=== PATIENT | female | born 1970 | race Two or more races ===

== ENCOUNTER 2018-03-17 05:47 | Day surgery (SDC) | payer BC, OTHER ==
[~2018-03-17] VITALS: Ht 154.9 cm; Wt 54.9 kg
[2018-03-17] VITALS (17 sets, daily range): BP systolic 93–121; BP diastolic 38–61; PULSE 60–87; RESP 15–25; Ht 154.9 cm; Wt 54.9 kg
--- NOTE | 2018-03-17 06:18 | HPN ---
Date/Time of Note Date/Time of Note DATE: 03/17/18 TIME: 06:18 Interval H&P Admission Note Pt. seen H&P reviewed: No system changes MUKUL RICCI MD Mar 17, 2018 06:18
[2018-03-17] MEDS ORDERED: PANT40TA3 PO (06:59)
[2018-03-17] MEDS ORDERED: EPHEDrine SULFATE 50 MG/5 ML SYG ONE (07:00)
[2018-03-17] MEDS ORDERED: CEFAZOLIN 1 GM INJ ONE (07:00)
[2018-03-17] MEDS ORDERED: BUPIVACAINE 0.5%/EPI (SDV) 30 ML INJ ONE (07:08)
--- NOTE | 2018-03-17 07:14 | PREAC ---
Date/Time of Note Date/Time of Note DATE: 03/17/18 TIME: 07:14 Anesthesia Eval and Record Evaluation Time Pre-Procedure Interview DATE: 03/17/18 TIME: 07:14 Age 47 Sex female NPO: 8 hrs Preoperative diagnosis bladder stone Planned procedure lap mounika Past Medical History Past Medical History: None Surgery & Anesthesia Issues No known issue Meds Anticoagulation: No Beta Nate within 24 hr: No Reason Beta Nate not given: Pt. not on B-Nate Reported Medications Pantoprazole* (Protonix*) 40 Mg Tablet.dr, 40 MG PO DAILY, TAB 03/17/18 Meds reviewed: Yes Allergies Coded Allergies: pineapple (Verified Allergy, Intermediate, RASHES, 03/17/18) Allergies Reviewed: Yes Labs/Studies Labs Reviewed: Reviewed by anesthesiologist test: Negative Studies: ECG (sr), CXR (nl) Pre-procedure Exam Last vitals Vital Signs Date Temp Pulse Resp B/P (MAP) Pulse Ox O2 O2 Flow FiO2 Time Delivery Rate 03/17/18 98.3 87 18 119/61 99 Room Air 06:57 (80) Airway: Adequate mouth opening Mallampati: Mallampati I Teeth: Normal Lung: Normal Heart: Normal ASA Physical Status ASA physical status: 1 Emergency: None Planned Anesthetic General/MAC: ETT Nerve block: TAP (bilateral) Planned Pain Management Single shot nerve block Pre-operative Attestations Prior to commencing anesthesia and surgery, the patient was re-evaluated, there was verification of: *The patient's identity *The results of appropriate recent lab work and preoperative vital signs *The above evaluation not changing prior to induction *Anesthetic plan, risk benefits, alternative and complications discussed with patient/family; questions answered; patient/family understands, accepts and wishes to proceed. HUMBERTO BAHENA MD Mar 17, 2018 07:14
[2018-03-17] MEDS ORDERED: MIDAZOLAM 1 MG/ML 2 ML INJ ONE (07:26)
[2018-03-17] MEDS ORDERED: METOCLOPRAMIDE 10 MG INJ ONE (07:26)
[2018-03-17] MEDS ORDERED: KETOROLAC 30 MG INJ ONE (07:26)
[2018-03-17] MEDS ORDERED: NEOSTIGMINE 3 MG/3 ML SYRINGE ONE (07:26)
[2018-03-17] MEDS ORDERED: ROCURONIUM 50 MG INJ ONE (07:26)
[2018-03-17] MEDS ORDERED: ONDANSETRON 4 MG INJ ONE (07:26)
[2018-03-17] MEDS ORDERED: PROPOFOL 20 ML ONE (07:26)
[2018-03-17] MEDS ORDERED: ROPIVACAINE 0.5 % 30 ML VIAL ONE (07:26)
[2018-03-17] MEDS ORDERED: GLYCOPYRROLATE 0.4 MG INJ ONE (07:26)
[2018-03-17] MEDS ORDERED: DIPHENHYDRAMINE 50 MG INJ IV PRN (07:30)
[2018-03-17] MEDS ORDERED: OXYCODONE/ACETAMINOPHEN (5/325) TAB PO PRN ×4 (07:30→08:30)
[2018-03-17] MEDS ORDERED: KETOROLAC 30 MG INJ IV PRN (07:30)
[2018-03-17] MEDS ORDERED: ONDANSETRON 4 MG INJ IV PRN ×2 (07:30→08:30)
[2018-03-17] MEDS ORDERED: MEPERIDINE 25 MG INJ IV PRN (07:30)
[2018-03-17] MEDS ORDERED: HYDROmorphONE 1 MG/5 ML IV SYRINGE IV PRN ×3 (07:30)
[2018-03-17] MEDS ORDERED: FENTAnyl 50 MCG/ML VIAL ONE (07:45)
[2018-03-17] MEDS ORDERED: morphine 2 MG INJ IV PRN (08:30)
--- NOTE | 2018-03-17 08:33 | OPR ---
Date/Time of Note Date/Time of Note DATE: 03/17/18 TIME: 08:29 Operative Report Procedure Date: Mar 17, 2018 Preoperative Diagnosis Gallstones without obstruction Postoperative Diagnosis Gallstones without obstruction Operation/Procedure Performed Laparoscopic cholecystectomy Surgeon Mukul Ricci MD Slack Cooper None Anesthesia Type: general Anesthesiologist: HUMBERTO BAHENA MD Estimated Blood Loss: 0 - 10 ml's Transfusion none Specimen Gallbladder Grafts/Implants none Tubes/Drains None Complications none Pt Condition Post Procedure: stable Disposition: PACU Indications Symptomatic cholelithiasis Procedure Description After satisfactory general endotracheal anesthesia was achieved, the abdomen was prepped and draped in the usual fashion. The abdomen was insufflated with carbon dioxide through an umbilical Veress needle to 15 mmHg pressure. The Veress needle was removed and the umbilical incision extended to 5 mm through which a 5 mm trocar was placed. A 5 mm 0 degree lens was placed. Laparoscopy was entirely unremarkable. Under direct visualization, an 11 mm epigastric trocar was placed as well as 2 more 5 mm right lateral abdominal trochars. The dome of the gallbladder was then grasped and retracted superiorly. Cerrato's pouch was grasped and retracted inferolaterally. The hepatoduodenal ligament was carefully dissected between the gallbladder and the well-visualized aleksandra hepatis. In this case the cystic artery was coursing anteriorly on the gal lbladder. This was dissected then triply hemoclipped and divided. The cystic duct was dissected between the gallbladder and the well-visualized common bile duct. It was triply hemoclipped and divided high at the junction of the gallbladder and the cystic duct. The gallbladder was then dissected from below using electrocautery dissection and placed fully intact into an Endo Catch removed by the epigastric route. Hemostasis of the liver bed was total and irrigant returned clear. The abdomen was then desufflated and all trochars were removed. The fascia of the epigastrium was closed with a single suture of 0 Vicryl. The skin punctures were then closed with yasemin. Sponge and needle counts were reported as correct x2. MUKUL RICCI MD Mar 17, 2018 08:33
--- NOTE | 2018-03-17 08:55 | PAC ---
Date/Time of Note Date/Time of Note DATE: 03/17/18 TIME: 08:55 Post-Anesthesia Notes Post-Anesthesia Note Last documented vital signs Vital Signs Date Temp Pulse Resp B/P (MAP) Pulse Ox O2 O2 Flow FiO2 Time Delivery Rate 03/17/18 Simple 8.0 08:38 Mask 03/17/18 98.3 87 18 119/61 99 06:57 (80) Activity: WNL Respiratory function: WNL Cardiovascular function: WNL Mental status: Baseline Pain reasonably controlled: Yes Hydration appropriate: Yes Nausea/Vomiting absent: No HUMBERTO BAHENA MD Mar 17, 2018 08:55
== END 2018-03-17 10:35 | disposition home or self-care (01) ==
LOC: SDS 05:47
PROVIDERS: ATTEND Surgery
DX: K80.10 Calculus of gallbladder with chronic cholecystitis without obstruction (principal)
CPT/HCPCS: 47562; 71045; J1170; J1885; J2250; J2405; J2710; J2765; J2795; J3010; Z7610; 88304; J0690